=== PATIENT | female | born 1980 | race Caucasian/White ===

== ENCOUNTER 2019-11-05 18:57 | Emergency (ER) | payer OTHER, SELFPAY ==
[2019-11-06 11:11] LABS: SARS-CoV-2 MS2 Positive; SARS-CoV-2 N Gene Negative; SARS-CoV-2 S Gene Negative; SARS-CoV-2 orf1ab Negative
== END 2019-11-05 21:02 | disposition home or self-care (01) ==
LOC: ERS 18:57
DX: R50.9 Fever, unspecified (principal); Z20.828 Contact with and (suspected) exposure to other viral communicable diseases; F17.210 Nicotine dependence, cigarettes, uncomplicated; F41.9 Anxiety disorder, unspecified
CPT/HCPCS: 87635; 99283; U0003

== ENCOUNTER 2021-05-19 09:19 | Outpatient (CLI) | payer BC | END 2021-05-19 09:20 | disposition home or self-care (01) | LOC: BICULT 09:19 | PROVIDERS: ATTEND Internal Medicine Gastroenterology | DX: R10.9 Unspecified abdominal pain (principal); K59.09 Other constipation | CPT/HCPCS: 76705 ==

== ENCOUNTER 2021-10-27 07:42 | Outpatient (CLI) | payer BC | END 2021-10-27 07:43 | disposition home or self-care (01) | LOC: BICULT 07:42 | PROVIDERS: ATTEND Physician Assistant | DX: Z12.31 Encounter for screening mammogram for malignant neoplasm of breast (principal); N89.8 Other specified noninflammatory disorders of vagina; R10.2 Pelvic and perineal pain; R93.89 Abnormal findings on diagnostic imaging of other specified body structures; Z98.82 Breast implant status | CPT/HCPCS: 76856; 77063; 77067 ==